=== PATIENT | male | born 1930 | race Caucasian/White ===

== ENCOUNTER → 2016-07-20 | Outpatient (CLI) | payer MEDICARE, OTHER ==
[~2016-07-20] MED LIST: ALLOPURINOL300 MG PO; AMIODARONE PO; AMLODIPINE BESYL5 MG PO; ASPIRIN EC81 M1 PO; ASPIRIN ENTERI325 M1 PO; ASPIRIN81 MG PO; ATORVASTATIN CA80 MG PO; BENICAR HCT 40-1 TA1 PO; BENICAR HCT 40/1 TAB PO; BENICAR PO; BETOPTIC S15 ML OU; BYSTOLIC5 MG PO; CELEBREX PO; COREG3.125 M1 PO; COREG3.125 MG PO; COUMADIN PO; COUMADIN10 MG PO; COUMADIN4 MG PO; DEMADEX10 MG; DEMADEX10 MG PO; DYAZIDE 37.5/251 CAP PO; FISH OIL 1,0001 CAP PO; HYDROXYZINE HCL50 MG PO; ISOPTO CARPINE OD; LISINOPRIL PO; LOSARTAN-HCTZ1 EAC3 PO; NORCO 5/325 TAB1 TAB PO; NORVASC PO; SIMBRINZA 1%-0.28 ML OU; TORSEMIDE10 M1 PO; VIT B-12 PO; VITAMIN D 4001 UDTAB PO; ZINC SULFATE PO; ZOCOR PO; [UNRECOGNIZED DRUG - OTHER] OP
--- NOTE | ~2016-07-20 | CT4 ---
[facility] A Service of [facility] & [facility] RADIOLOGY TEXT RESULTS PATIENT: DHARA HOLLIS LOCATION: [facility] : 30 UNIT #: [id number] AGE: [address]: Cecil Chou MD SEX: M ORDER DR: [id number] [address] [address] [id number] P MR#: [id number] Acc #: [id number] NAME: DHARA HOLLIS : 1930 SEX: M STUDY DATE/TIME: 07/20/2016 12:48 UNIT: [facility] ROOM: STUDY DESCRIPTION: CT Abd and Pelv Wo Cont Attending Physician: Cecil Chou M.D. Referring Physician: Cecil Chou M.D. Ordering Physician: Cecil Chou M.D. Primary Care Physician: Max Garcia M.D. MEDICAL IMAGING REPORT This report is preliminary unless electronic signature is present. EXAM CT of the abdomen and pelvis without contrast 07/20/2016 HISTORY Left lower back pain for 1 month. The patient has a history of stones. TECHNIQUE Axial CT images were obtained from dome of the diaphragm to the symphysis pubis. No oral or intravenous contrast material was administered. This CT exam was performed with one or more of the following radiation dose reduction techniques: automatic exposure control, adjustment of mA and/or kV according to patient size, and iterative reconstruction. FINDINGS Images through the lung bases demonstrate some background emphysematous changes. Some dystrophic calcifications are seen within the right lobe of the liver. Calcified granulomata are seen within the spleen. The stomach and proximal small bowel are within normal limits as are the adrenal glands. Pancreas is within normal limits. Patient is suspected to have bilateral renal cysts. There is a nonobstructing stone identified within the inferior pole of the left kidney which measures up to 1 and 1/2 cm in size. This does measure larger than on prior examination when it measured about 1.1 cm. There is an additional punctate nonobstructing stone seen within the left kidney and an additional punctate nonobstructing stone seen within the inferior pole of the right kidney. There is no hydroureteronephrosis. No distal ureteral or bladder stones are seen. No free fluid is seen within the abdomen. Patient is noted to have some mild stranding within the mesentery which has been unchanged since March 2015. There is no evidence of mechanical bowel obstruction. Patient's appendix is visualized and is within normal limits. There are STS. [facility] A Service of [facility] & [facility] RADIOLOGY TEXT RESULTS PATIENT: DHARA HOLLIS LOCATION: [facility] : 30 UNIT #: [id number] AGE: [address]: Cecil Chou MD SEX: M ORDER DR: postsurgical changes seen within the right anterolateral abdominal wall. There is atherosclerotic involvement of the abdominal aorta. Review of bony windows does not demonstrate any aggressive osseous abnormalities. Sclerotic focus within the right iliac vein is unchanged when compared to the exam from March 2015. I do not see any new osseous lesions. IMPRESSION 1. Nonobstructing stone identified within the inferior pole of the left kidney. I think this has increased in size when compared to the prior exam. It now measures up to about 1 and 1/2 cm in size. Previously it measured about 1.1 cm. Patient has nonobstructing stones seen within both kidneys. No distal ureteral or bladder stones are seen. 2. Prostate gland is surgically absent. 3. Bilateral renal cysts. 4. 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 5. Please see the body of the report for any other additional incidental findings. Dictated by... Jaylin Parks M.D. THIS IS AN ELECTRONICALLY VERIFIED REPORT Jaylin Parks M.D. at 07/21/2016 10:37 AM RANDALL/iona TD: 07/20/2016 17:32 JOB #: [id number] MEDICAL IMAGING REPORT
== END | disposition home or self-care (01) ==
LOC: SCT 07:32
DX: N20.0 Calculus of kidney (principal); N28.1 Cyst of kidney, acquired; Z90.79 Acquired absence of other genital organ(s)
CPT/HCPCS: 74176

== ENCOUNTER → 2016-07-29 | Day surgery (SDC) | payer MEDICARE, OTHER ==
--- NOTE | ~2016-07-29 | EKG ---
PATIENT: DHARA HOLLIS UNIT #: [id number] Ventricular Rate: 48 BPM Atrial Rate: 48 BPM P-R Interval: 178 ms QRS Duration: 110 ms Q-T Interval: 498 ms QTC Calculation(Bezet): 444 ms P [place]: 46 degrees Calculated R [place]: -46 degrees Calculated T [place]: -22 degrees Diagnosis Line: Marked sinus bradycardia Diagnosis Line: Left axis deviation Diagnosis Line: T wave abnormality, consider lateral ischemia Diagnosis Line: Prolonged QT Diagnosis Line: Abnormal ECG Diagnosis Line: When compared with ECG of 14-JAN-2016 09:44, Diagnosis Line: Sinus rhythm has replaced Atrial fibrillation Diagnosis Line: Vent. rate has decreased BY 33 BPM Diagnosis Line: Right bundle branch block is no longer Present Diagnosis Line: Confirmed by RUTH ZAPATA MD ([id number]) on 07/29/2016 Diagnosis Line: 4:47:53 PM INTERPRETING MD: BENNY FORD
--- NOTE | ~2016-07-29 | OR ---
Unit #: [id number] #: [id number] Patient: DHARA HOLLIS [id number] [address] [place], [place] [address] [id number] O MR#: [id number] NAME: DHARA HOLLIS ROOM: Date of Procedure: 07/29/2016 Admission Date: 07/29/2016 Surgeon: Cecil Chou M.D. : 1930 Attending Physician: Cecil Chou M.D. Primary Care Physician: Max Garcia M.D. OPERATIVE REPORT PREOPERATIVE DIAGNOSIS Kidney stone. POSTOPERATIVE DIAGNOSES Urethral stricture, kidney stone, renal pelvic mass. PROCEDURE PERFORMED Cystoscopy, left ureteroscopy, biopsy of renal pelvis, stent placement with tether. ANESTHESIA General. DESCRIPTION OF PROCEDURE After informed consent, he was taken to the operating room, placed under general anesthetic, positioned in lithotomy. His penis and perineum were prepped and draped in usual sterile fashion. Cystoscopy was performed. He had a urethral stricture. I used a male urethral cells to dilate him gently, I then performed cystoscopy. The urethra was opened. Inspection of the bladder showed no tumors, no stones, no diverticula. The entire bladder was inspected. The left ureteral orifice was cannulated with a Sensor wire. A ureteral access sheath was placed over the wire. The wire was removed. The stent under fluoroscopy and direct vision. Flexible ureteroscopy was performed. The renal pelvis had multiple raised smooth polyp looking lesions that did not appear to be classic urothelial cancer. There were several of them. There was a decent number near the UPJ and with irrigation the UPJ area opened easily, however, without irrigation, I could see how this may cause some delay in emptying of the collecting system. I was able to find the stone in the lower pole. Stone was over 1 cm in size. The angle to access the lower pole stone was such that a 200 laser fiber could not be passed into the scope and then easily target the stone. The fiber would graze the stone, the angle was too acute, I could not get the fiber directly on top of the stone due to the acute angle and the fact that it made the scope less flexible once we used the fiber. The 200 fiber is the smallest fiber available. The stone was too large to basket. I did not have any other options at this time. I placed a 5 x 35 x 28 stent at the end of the procedure. The tether was left attached. Prior to putting the stent in place, I did take a small biopsy of one of the small polyp lesion, this was sent to the lab for permanent specimen. The patient had been off his Coumadin and his INR was normal. The stent had good coil in the bladder and collecting system. I would talk with him about whether or not he could consider percutaneous nephrolithotomy or Unit #: [id number] #: [id number] Patient: DHARA HOLLIS shockwave lithotripsy with him being anticoagulated these were not very good options. He has a problem with incontinence, I think some of it may be related to the stricture. The polyps in the collecting system on the left may also be responsible for some of his episodes of flank pain that he experiences that he thought was due to the stone. The stone, as I mentioned was in the lower pole, had no evidence and no reason to think it was obstructing, it was not at the UPJ. He will return to see me next week. I did place a Edouard catheter drainage as well. The patient had such bad incontinence that he and I, both thought it would be better if he had a catheter in, because of the stent would just exacerbate some of his urge and stress incontinence. He tolerated the procedure well. Dictated by... Cecil Chou M.D. RISHI/jonel TD: 07/30/2016 03:25 JOB #: [id number] OPERATIVE REPORT X Cecil Chou MD X PROCEDURE OPERATIVE NOTE
[2016-07-29 12:08] LABS: HEMOGLOBIN 14.5 gm/dL (13.0-16.0); MEAN CELL VOLUME 92.5 FL (83-96); MEAN CORPUSCULAR HEMOGLOBIN 31.2 PG (28-34); MEAN CORPUSCULAR HGB CONC 33.8 g/dL (30-36); MEAN PLATELET VOLUME 9.4 FL (6.5-11.5); RED BLOOD COUNT 4.64 X10e (3.90-5.60); RED CELL DISTRIBUTION WIDTH 13.9 % (11.0-15.5); WHITE BLOOD COUNT 8.4 X10e3 (4.0-10.5)
[2016-07-29 12:17] LABS: INR 1.3; PROTHROMBIN TIME (PATIENT) 13.5 SECONDS (9.6-11.5)
[2016-07-29 12:36] LABS: BLOOD UREA NITROGEN 18 mg/dL (9-23); BUN/CREATININE RATIO 16.36; CALCIUM SERUM 9.2 mg/dL (8.4-10.2); CARBON DIOXIDE 29 mmol/L (22-31); CHLORIDE 100 mmol/L (100-111); CREATININE SERUM 1.1 mg/dL (0.6-1.4); GLOM FILT RATE Estimated ABOVE60 mL/min (>60); GLUCOSE FASTING 116 mg/dL (70-110); POTASSIUM 3.6 mmol/L (3.5-5.1); SODIUM 139 mmol/L (135-145)
== END | disposition home or self-care (01) ==
LOC: CSUR 11:01
PROVIDERS: Urology
DX: N20.0 Calculus of kidney (principal); I10 Essential (primary) hypertension; E78.5 Hyperlipidemia, unspecified; Z85.46 Personal history of malignant neoplasm of prostate; Z86.73 Personal history of transient ischemic attack (TIA), and cerebral infarction without residual deficits; Z88.5 Allergy status to narcotic agent; Z79.82 Long term (current) use of aspirin; Z79.899 Other long term (current) drug therapy; Z96.651 Presence of right artificial knee joint; Z98.890 Other specified postprocedural states
CPT/HCPCS: 80048; 85027; 85610; 88305; 93005; C1758; C2617; J0690; J2405; J3010

== ENCOUNTER 2016-08-02 10:31 | Emergency (ER) | payer MEDICARE, OTHER | END 2016-08-02 11:55 | disposition home or self-care (01) | LOC: CED 10:31 | DX: T83.038A Leakage of other urinary catheter, initial encounter (principal); I10 Essential (primary) hypertension; Z88.5 Allergy status to narcotic agent | CPT/HCPCS: 51702; 99283 ==

== ENCOUNTER → 2016-08-23 | Outpatient (CLI) | payer MEDICARE, OTHER ==
--- NOTE | ~2016-08-23 | CT23 ---
[facility] A Service of [facility] & [facility] RADIOLOGY TEXT RESULTS PATIENT: DHARA HOLLIS LOCATION: [facility] : 30 UNIT #: [id number] AGE: [address]: Max Garcia MD SEX: M ORDER DR: [id number] [facility] [address] [place], [place] [address] [id number] O MR#: [id number] Acc #: [id number] NAME: DHARA HOLLIS. : 1930 SEX: M STUDY DATE/TIME: 08/23/2016 13:40 UNIT: [facility] ROOM: STUDY DESCRIPTION: CT Angio Neck Attending Physician: Max Garcia M.D. Referring Physician: Max Garcia M.D. Ordering Physician: Max Garcia M.D. Primary Care Physician: Max Garcia M.D. MEDICAL IMAGING REPORT This report is preliminary unless electronic signature is present EXAM CT angiogram of the neck FINDINGS Please see CT angiogram of the head for results. Dictated by... Raulito Lincoln M.D. THIS IS AN ELECTRONICALLY VERIFIED REPORT Raulito Lincoln M.D. at 08/24/2016 11:23 AM DYLAN/nathalie TD: 08/24/2016 09:27 JOB #: [id number] MEDICAL IMAGING REPORT Page 1 of 1 COPY
--- NOTE | ~2016-08-23 | CT17 ---
[facility] A Service of [facility] & [facility] RADIOLOGY TEXT RESULTS PATIENT: DHARA HOLLIS LOCATION: [facility] : 30 UNIT #: [id number] AGE: [address]: Max Garcia MD SEX: M ORDER DR: [id number] [facility] [address] [facility] [place], [place] [address] [id number] O MR#: [id number] Acc #: [id number] NAME: DHARA HOLLIS. : 1930 SEX: M STUDY DATE/TIME: 08/23/2016 13:40 UNIT: [facility] ROOM: STUDY DESCRIPTION: CT Angio Head Attending Physician: Max Garcia M.D. Referring Physician: Max Garcia M.D. Ordering Physician: Max Garcia M.D. Primary Care Physician: Max Garcia M.D. MEDICAL IMAGING REPORT This report is preliminary unless electronic signature is present EXAM CT scan of the head and neck with contrast with carotid CT angiography COMPARISON 03/28/2014. HISTORY Left hand numbness since February 2016 accompanied by confusion with a previous history of stroke in February 2016. TECHNIQUE Thin section imaging was obtained from the mid mediastinum to the top of the head with contrast. 100 mL of Isovue was used. CT angiography was performed with thick sliding MIPs, curved planar reformats and 3-D volumetric imaging with surface shaded and volume shaded display. This CT examination was performed with one or more of the following radiation dose reduction techniques: automatic exposure control, adjustment of mA and/or kV according to patient size, and iterative reconstruction. FINDINGS There is a band of linear scarring or atelectasis at the left apex that is unchanged from the previous examination in 2013. Extravascular structures are otherwise unremarkable. The CT angiographic study shows mild calcified plaque over the arch with wide patency of the great vessels. In the posterior circulation, both vertebral arteries are patent with the right being dominant. The basilar artery is widely patent. There is a tiny calcified plaque in the distal right vertebral that is nonocclusive. In the carotid circulation, there is mild plaque at both bifurcations. There is no significant stenosis by NASCET criteria. There is eccentric nonocclusive plaque in the carotid siphons. Calcified plaque shows little STS. [facility] A Service of [facility] & [facility] RADIOLOGY TEXT RESULTS PATIENT: DHARA HOLLIS [facility] : [facility] UNIT #: [id number] AGE: [address]: Max Garcia MD SEX: M ORDER DR: change from the previous examination in 2013. In the intracranial circulation, there is no evidence of aneurysm, vascular malformation or major branch vessel occlusion. IMPRESSION Mild plaque both carotid bifurcations and both siphons. Tiny plaque distal right vertebral without stenosis. No significant change from the previous examination in 2013. No significant stenosis by NASCET criteria. No evidence of intracranial aneurysm. Dictated by... Raulito Lincoln M.D. THIS IS AN ELECTRONICALLY VERIFIED REPORT Raulito Lincoln M.D. at 08/24/2016 11:22 AM DYLAN/nathalie TD: 08/24/2016 09:20 JOB #: [id number] MEDICAL IMAGING REPORT Page 1 of 1 COPY
== END | disposition home or self-care (01) ==
LOC: CCAT 12:58
DX: I63.9 Cerebral infarction, unspecified (principal); R41.3 Other amnesia; I65.23 Occlusion and stenosis of bilateral carotid arteries; I67.2 Cerebral atherosclerosis
CPT/HCPCS: 70496; 70498; Q9967